=== PATIENT | male | born 1995 | race Caucasian/White ===

== ENCOUNTER 2024-02-19 13:47 | Emergency (ER) | payer OTHER ==
[2024-02-19 14:34] LABS: BASOPHILS PERCENT AUTO 0.5 % (0.0-1.0); EOSINOPHILS PERCENT AUTO 0.6 % (1.0-3.0); HEMATOCRIT 46.5 % (40.0-54.0); HEMOGLOBIN 15.5 g/dL (14.0-18.0); LYMPHOCYTES PERCENT AUTO 30.9 % (20.5-50.1); MEAN CORPUSCULAR HEMOGLOBIN 29.1 pg (27.0-34.0); MEAN CORPUSCULAR HGB CONC 33.3 g/dL (33.0-35.0); MEAN CORPUSCULAR VOLUME 87.4 fL (80-100); MONOCYTES PERCENT AUTO 12.2 % (2-8); NEUTROPHILS PERCENT AUTO 55.8 % (42.2-75.2); PLATELET COUNT,PLT 153 10^3/uL (150-450); RED BLOOD CELL COUNT 5.32 10^6/uL (4.6-6.2); WHITE BLOOD CELL COUNT,WBC 8.7 10^3/uL (5.0-10.0)
[2024-02-19] MEDS: Sodium Chloride 0.9% 1,000 ML IV ONE ×2 (14:44→16:11)
[2024-02-19 14:53] LABS: PROTHROMBIN TIME 9.9 SEC (9.0-12.0); PTT,PARTIAL THROMBOPLSTIN TIME 19.9 SEC (22.0-34.0)
[2024-02-19 14:57] LABS: APPEARANCE,URINE CLEAR (CLEAR); BILIRUBIN,URINE NEGATIVE (NEGATIVE); GLUCOSE,URINE NEGATIVE (NEGATIVE); KETONES,URINE NEGATIVE (NEGATIVE); LEUKOCYTE ESTERASE,URINE NEGATIVE (NEGATIVE); NITRITE,URINE NEGATIVE (NEGATIVE); OCCULT BLOOD,URINE NEGATIVE (NEGATIVE); PROTEIN,URINE NEGATIVE (NEGATIVE); UROBILINOGEN,URINE 0.2 mg/dL (0.2-1.0)
[2024-02-19 14:58] LABS: COLOR,URINE LIGHT YELLOW (YELLOW)
[2024-02-19] MEDS: Iopamidol 612 MG/ML 100 ML Bottle IVPUSH ONE ×3 (15:01→15:05)
[2024-02-19 15:04] LABS: A/G RATIO 1.2; ALBUMIN 4.3 g/dL (3.4-5.0); ANION GAP 13.3 mEq/L (7-13); BILIRUBIN TOTAL 0.3 mg/dL (0.2-1.0); BUN/CREATININE RATIO 13.3 (No establ ref range); CALCIUM 9.8 mg/dL (8.5-10.1); CREATININE 1.13 mg/dL (0.70-1.30); EST CRCL DRUG DOSING (CG) 103.66 mL/min; POTASSIUM,K 4.3 mmol/L (3.5-5.1); PROTEIN TOTAL,TP 7.9 g/dL (6.4-8.2)
[2024-02-19] MEDS: Iopamidol 755 Mg/ML 100 ML Bottle IV ONE ×2 (15:04→15:53)
[2024-02-19 15:05] LABS: LACTIC ACID 1.4 mmol/L (0.4-2.0)
[2024-02-19] MEDS: Sodium Chloride 0.9% 10 ML Syringe FLUSH PRN (15:12)
== END 2024-02-19 17:50 | disposition home or self-care (01) ==
LOC: DL.ED 13:47 → MERGE 13:47 → DL.ED 17:50
DX: S90.31XA Contusion of right foot, initial encounter (principal); M62.830 Muscle spasm of back; V89.2XXA Person injured in unspecified motor-vehicle accident, traffic, initial encounter
CPT/HCPCS: 36415; 70450; 70498; 71045; 71260; 72125; 72128; 72131; 73590; 73610; 73630; 74177; 80053; 81003; 82550; 83605; 83690; 83735; 84484; 85025; 85610; 85730; 96360; 96361; 99283; 99284; J7030; Q9967; J3490